=== PATIENT | female | born 1965 | race Caucasian/White ===

== ENCOUNTER 2022-10-04 14:49 | Inpatient (IN) | payer MEDICAID ==
[~2022-10-04] VITALS: Ht 154.9 cm; Wt 64.0 kg
[2022-10-04] MEDS ORDERED: KETOROLAC 30MG/ML VIAL IM STA (16:09)
[2022-10-04] MEDS ORDERED: ONDANSETRON 4MG ODT PO ONE (16:15)
[2022-10-04 17:36] LABS: BASOPHILS % 0.5 % (0.0-2.0); EOSINOPHILS % 0.6 % (0.0-5.0); HEMATOCRIT. 37.6 % (36.0-48.0); HEMOGLOBIN. 12.7 g/dL (12.0-16.0); LYMPHOCYTES % 26.4 % (20.0-50.0); MEAN CORPUSCULAR HEMOGLOBIN 28.8 pg (28.0-32.0); MEAN CORPUSCULAR VOLUME 85.2 fL (81.0-99.0); MEAN PLATELET VOLUME 7.9 fl (7.4-10.4); MONOCYTES % 5.6 % (2.0-8.0); NEUTROPHILS % 66.9 % (40.0-76.0); PLATELET 416 x1000/uL (130-400); RED BLOOD CELL COUNT 4.42 mill/uL (4.2-5.4); RED CELL DISTRIBUTION WIDTH 13.7 % (11.6-14.6)
[2022-10-04 17:43] LABS: CHLORIDE 94 mEq/L (98-107)
[2022-10-04 17:59] LABS: CLARITY URINE TURBID (CLEAR); COLOR URINE YELLOW (YELLOW); KETONES URINE TRACE (NEGATIVE); LEUKOCYTE ESTERASE URINE NEGATIVE (NEGATIVE); NITRITE URINE POSITIVE (NEGATIVE); OCCULT BLOOD URINE NEGATIVE (NEGATIVE); PROTEIN URINE 3+ (NEGATIVE); SPECIFIC GRAVITY URINE 1.025 (1.005-1.030); UROBILINOGEN URINE 0.2 E.U./dL (0.2-1.0)
[2022-10-04] MEDS ORDERED: POTASSIUM CHLORIDE 20MEQ TABLET SR PO ONE (18:00)
[2022-10-04] MEDS ORDERED: CEFTRIAXONE 1 G PREMIX 50 ML IV ONE (18:00)
[2022-10-04] MEDS ORDERED: CEFTRIAXONE 1 G PREMIX 50 ML IV NR (21:45)
[2022-10-04] MEDS ORDERED: POTASSIUM CHLORIDE 20MEQ TABLET SR PO NR (22:00)
[2022-10-04] MEDS ORDERED: NALOXONE HCL 0.4MG/ML VIAL IV PRN (23:45)
[2022-10-05] MEDS ORDERED: TRAMADOL 50MG TABLET PO PRN
[2022-10-05] MEDS ORDERED: PIPERACILLIN/TAZ 3.375G PREMIX 50 ML IV NR (00:30)
[2022-10-05] MEDS ORDERED: DEXT 5%/0.45% NACL KCL 10MEQ/L 1,000 ML IV SCH (01:00)
[2022-10-05] MEDS: ONDANSETRON HCL 4MG/2ML INJ IV PRN ×3 (01:31→21:59)
[2022-10-05] MEDS: HYDROMORPHONE HCL/PF 2MG/ML CPJ IV PRN ×2 (01:32→22:02)
[2022-10-05] MEDS ORDERED: PIPERACILLIN/TAZOBACTAM 3.375 G in DEXTROSE 5% WATER 50 ML IV SCH (08:00)
[2022-10-05 11:00] VITALS: BP 167/96
[2022-10-05 12:00] VITALS: BP 158/84
[2022-10-05] MEDS: PIPERACILLIN/TAZOBACTAM 3.375 G in DEXTROSE 5% WATER 50 ML IV SCH ×2 (15:16→21:59)
[2022-10-05] MEDS: ENOXAPARIN 40MG/0.4ML SYR SUBCUT SCH (15:16)
[2022-10-05] MEDS: AMLODIPINE 10MG TABLET PO SCH (15:16)
[2022-10-05 16:33] VITALS: BP 160/93
[2022-10-05 17:10] LABS: BASOPHILS % 0.3 % (0.0-2.0); EOSINOPHILS % 0.7 % (0.0-5.0); HEMATOCRIT. 36.7 % (36.0-48.0); HEMOGLOBIN. 12.3 g/dL (12.0-16.0); LYMPHOCYTES % 11.8 % (20.0-50.0); MEAN CORPUSCULAR VOLUME 86.1 fL (81.0-99.0); MEAN PLATELET VOLUME 8.2 fl (7.4-10.4); MONOCYTES % 5.6 % (2.0-8.0); NEUTROPHILS % 81.6 % (40.0-76.0); PLATELET 382 x1000/uL (130-400); RED BLOOD CELL COUNT 4.26 mill/uL (4.2-5.4); RED CELL DISTRIBUTION WIDTH 13.7 % (11.6-14.6)
[2022-10-05 17:41] LABS: CHLORIDE 94 mEq/L (98-107)
[2022-10-05 17:50] LABS: HDL CHOLESTEROL 40 mg/dL (40-59); LDL CHOLESTEROL 216 mg/dL (5-100)
[2022-10-05 18:34] VITALS: BP 179/113
[2022-10-05 20:00] VITALS: BP 142/94
[2022-10-05] MEDS: DEXT 5%/0.45% NACL KCL 10MEQ/L 1,000 ML IV SCH (21:59)
[2022-10-06] VITALS (7 sets, daily range): BP systolic 110–164; BP diastolic 59–102
[2022-10-06] MEDS: DEXT 5%/0.45% NACL KCL 10MEQ/L 1,000 ML IV SCH ×2 (02:50→18:24)
[2022-10-06] MEDS: PIPERACILLIN/TAZOBACTAM 3.375 G in DEXTROSE 5% WATER 50 ML IV SCH ×3 (07:00→21:30)
[2022-10-06] MEDS: ENOXAPARIN 40MG/0.4ML SYR SUBCUT SCH (08:59)
[2022-10-06] MEDS: AMLODIPINE 10MG TABLET PO SCH (08:59)
[2022-10-06] MEDS: ONDANSETRON HCL 4MG/2ML INJ IV PRN ×3 (08:59→21:30)
[2022-10-06] MEDS: HYDROMORPHONE HCL/PF 2MG/ML CPJ IV PRN ×2 (08:59→12:16)
[2022-10-06] MEDS ORDERED: PNEUMOCOCCAL 23-VAL P-SAC VAC 0.5 ML IM ONE (09:00)
[2022-10-06] MEDS ORDERED: INFLUENZA VACCINE 05/PF 0.5 ML SYRINGE IM ONE (09:00)
[2022-10-06] MEDS ORDERED: DEXTROSE 50% WATER 50ML SYRINGE IV PRN (13:00)
[2022-10-06] MEDS: BLOOD SUGAR DIAGNOSTIC STRIP TEST SCH ×2 (16:50→21:41)
[2022-10-06] MEDS: INSULIN LISPRO 100 UNITS/ML SUBCUT SCH ×2 (18:24→21:41)
[2022-10-07 00:04] VITALS: BP 171/88
[2022-10-07 04:00] VITALS: BP 152/88
[2022-10-07] MEDS: DEXT 5%/0.45% NACL KCL 10MEQ/L 1,000 ML IV SCH ×3 (05:30→17:35)
[2022-10-07] MEDS: PIPERACILLIN/TAZOBACTAM 3.375 G in DEXTROSE 5% WATER 50 ML IV SCH ×3 (06:58→22:08)
[2022-10-07] MEDS: BLOOD SUGAR DIAGNOSTIC STRIP TEST SCH ×4 (07:00→22:03)
[2022-10-07 07:07] LABS: BASOPHILS % 0.8 % (0.0-2.0); HEMATOCRIT. 31.9 % (36.0-48.0); HEMOGLOBIN. 11.1 g/dL (12.0-16.0); LYMPHOCYTES % 18.2 % (20.0-50.0); MEAN CORPUSCULAR HEMOGLOBIN 30.3 pg (28.0-32.0); MEAN CORPUSCULAR VOLUME 87.2 fL (81.0-99.0); MEAN PLATELET VOLUME 7.7 fl (7.4-10.4); MONOCYTES % 5.7 % (2.0-8.0); NEUTROPHILS % 74.3 % (40.0-76.0); PLATELET 363 x1000/uL (130-400); RED BLOOD CELL COUNT 3.66 mill/uL (4.2-5.4); RED CELL DISTRIBUTION WIDTH 13.7 % (11.6-14.6)
[2022-10-07] MEDS: INSULIN LISPRO 100 UNITS/ML SUBCUT SCH ×4 (07:20→22:08)
[2022-10-07 07:44] LABS: CHLORIDE 102 mEq/L (98-107)
[2022-10-07 08:00] VITALS: BP 152/80
[2022-10-07] MEDS: ENOXAPARIN 40MG/0.4ML SYR SUBCUT SCH (09:11)
[2022-10-07] MEDS: AMLODIPINE 10MG TABLET PO SCH (09:11)
[2022-10-07] MEDS: ONDANSETRON HCL 4MG/2ML INJ IV PRN ×2 (09:17→17:42)
[2022-10-07 12:00] VITALS: BP 105/58
[2022-10-07] MEDS ORDERED: POTASSIUM CHLORIDE INJ 40 MEQ in DEXT 5% WATER 250 ML IV ONE (14:45)
[2022-10-07 16:00] VITALS: BP 140/74
[2022-10-07] MEDS: KCL 20MEQ/100ML X 2 FOR TOTAL KCL 40MEQ/200ML IV SCH ×2 (17:30→19:38)
[2022-10-07] MEDS: ACETAMINOPHEN 325MG TABLET PO PRN (17:49)
[2022-10-07 20:00] VITALS: BP 138/76
[2022-10-08] VITALS: BP 142/90
[2022-10-08 04:00] VITALS: BP 155/88
[2022-10-08] MEDS: BLOOD SUGAR DIAGNOSTIC STRIP TEST SCH ×4 (06:50→22:35)
[2022-10-08 08:00] VITALS: BP 98/49
[2022-10-08] MEDS: PIPERACILLIN/TAZOBACTAM 3.375 G in DEXTROSE 5% WATER 50 ML IV SCH ×3 (08:05→22:30)
[2022-10-08] MEDS: ENOXAPARIN 30MG/0.3ML SYR SUBCUT SCH (08:05)
[2022-10-08] MEDS: AMLODIPINE 10MG TABLET PO SCH (08:05)
[2022-10-08] MEDS: INSULIN LISPRO 100 UNITS/ML SUBCUT SCH ×4 (08:06→22:35)
[2022-10-08] MEDS: DEXT 5%/0.45% NACL KCL 10MEQ/L 1,000 ML IV SCH ×2 (08:07→21:30)
[2022-10-08 12:00] VITALS: BP 130/100
[2022-10-08] MEDS: ONDANSETRON HCL 4MG/2ML INJ IV PRN ×2 (13:59→22:34)
[2022-10-08] MEDS: HYDROMORPHONE HCL/PF 2MG/ML CPJ IV PRN ×2 (13:59→22:34)
[2022-10-08 16:00] VITALS: BP 128/77
[2022-10-08 20:00] VITALS: BP 159/98
[2022-10-09] VITALS: BP 142/88
[2022-10-09 04:00] VITALS: BP 132/84
[2022-10-09] MEDS: BLOOD SUGAR DIAGNOSTIC STRIP TEST SCH ×4 (07:02→20:16)
[2022-10-09] MEDS: PIPERACILLIN/TAZOBACTAM 3.375 G in DEXTROSE 5% WATER 50 ML IV SCH ×3 (07:03→21:10)
[2022-10-09] MEDS: ONDANSETRON HCL 4MG/2ML INJ IV PRN ×3 (07:03→20:16)
[2022-10-09] MEDS: INSULIN LISPRO 100 UNITS/ML SUBCUT SCH ×4 (07:20→21:00)
[2022-10-09 08:00] VITALS: BP 102/59
[2022-10-09] MEDS: ENOXAPARIN 30MG/0.3ML SYR SUBCUT SCH (09:57)
[2022-10-09] MEDS: AMLODIPINE 10MG TABLET PO SCH (09:58)
[2022-10-09 12:00] VITALS: BP 103/63
[2022-10-09] MEDS: HYDROMORPHONE HCL/PF 2MG/ML CPJ IV PRN ×2 (12:09→20:15)
[2022-10-09] MEDS: DEXT 5%/0.45% NACL KCL 10MEQ/L 1,000 ML IV SCH (12:11)
[2022-10-09 16:00] VITALS: BP 138/75
[2022-10-09 20:00] VITALS: BP 145/68
[2022-10-10] VITALS: BP 163/81
[2022-10-10] MEDS: HYDROMORPHONE HCL/PF 2MG/ML CPJ IV PRN ×5 (00:34→20:29)
[2022-10-10] MEDS: DEXT 5%/0.45% NACL KCL 10MEQ/L 1,000 ML IV SCH ×3 (00:36→20:27)
[2022-10-10] MEDS: ONDANSETRON HCL 4MG/2ML INJ IV PRN ×4 (02:39→21:36)
[2022-10-10 04:06] VITALS: BP 177/106
[2022-10-10] MEDS: PIPERACILLIN/TAZOBACTAM 3.375 G in DEXTROSE 5% WATER 50 ML IV SCH ×2 (05:10→15:40)
[2022-10-10] MEDS: BLOOD SUGAR DIAGNOSTIC STRIP TEST SCH ×4 (06:34→20:29)
[2022-10-10 06:39] LABS: BASOPHILS % 0.4 % (0.0-2.0); EOSINOPHILS % 1.3 % (0.0-5.0); HEMATOCRIT. 32.6 % (36.0-48.0); HEMOGLOBIN. 11.1 g/dL (12.0-16.0); LYMPHOCYTES % 7.1 % (20.0-50.0); MEAN CORPUSCULAR HEMOGLOBIN 29.5 pg (28.0-32.0); MEAN CORPUSCULAR VOLUME 86.3 fL (81.0-99.0); MEAN PLATELET VOLUME 7.9 fl (7.4-10.4); MONOCYTES % 9.9 % (2.0-8.0); NEUTROPHILS % 81.3 % (40.0-76.0); PLATELET 385 x1000/uL (130-400); RED BLOOD CELL COUNT 3.77 mill/uL (4.2-5.4); RED CELL DISTRIBUTION WIDTH 13.7 % (11.6-14.6)
[2022-10-10 07:35] LABS: CHLORIDE 104 mEq/L (98-107)
[2022-10-10 08:00] VITALS: BP 146/101
[2022-10-10] MEDS: ENOXAPARIN 30MG/0.3ML SYR SUBCUT SCH (09:00)
[2022-10-10] MEDS: AMLODIPINE 10MG TABLET PO SCH (10:05)
[2022-10-10] MEDS: INSULIN LISPRO 100 UNITS/ML SUBCUT SCH ×4 (10:35→21:00)
[2022-10-10 11:58] LABS: CREATINE KINASE 60 IU/L (26-192)
[2022-10-10 16:00] VITALS: BP 164/79
[2022-10-10 20:00] VITALS: BP 159/86
[2022-10-11] VITALS: BP 150/88
[2022-10-11] MEDS: HYDROMORPHONE HCL/PF 2MG/ML CPJ IV PRN ×4 (01:01→23:35)
[2022-10-11] MEDS: ONDANSETRON HCL 4MG/2ML INJ IV PRN ×3 (03:38→18:19)
[2022-10-11 04:09] VITALS: BP 177/81
[2022-10-11] MEDS: DEXT 5%/0.45% NACL KCL 10MEQ/L 1,000 ML IV SCH (04:46)
[2022-10-11] MEDS: BLOOD SUGAR DIAGNOSTIC STRIP TEST SCH ×4 (06:34→21:00)
[2022-10-11 07:01] LABS: HEMATOCRIT. 31.7 % (36.0-48.0); HEMOGLOBIN. 10.8 g/dL (12.0-16.0); MEAN CORPUSCULAR HEMOGLOBIN 29.4 pg (28.0-32.0); MEAN CORPUSCULAR VOLUME 86.1 fL (81.0-99.0); MEAN PLATELET VOLUME 7.6 fl (7.4-10.4); PLATELET 402 x1000/uL (130-400); RED BLOOD CELL COUNT 3.68 mill/uL (4.2-5.4)
[2022-10-11] MEDS: INSULIN LISPRO 100 UNITS/ML SUBCUT SCH ×4 (07:20→21:12)
[2022-10-11 08:00] VITALS: BP 169/97
[2022-10-11] MEDS ORDERED: SKIN ADHESIVE 0.7 GM EA TOP ONE ×2 (08:06→08:07)
[2022-10-11] MEDS ORDERED: BUPIVACAINE HCL/PF 0.5% (5MG/ML) 10ML ONE (08:07)
[2022-10-11 08:08] LABS: CHLORIDE 105 mEq/L (98-107)
[2022-10-11] MEDS ORDERED: POTASSIUM CHLORIDE INJ 40 MEQ in DEXT 5% WATER 250 ML IV ONE (08:15)
[2022-10-11 08:21] LABS: PHOSPHORUS 3.5 mg/dL (2.5-4.9)
[2022-10-11] MEDS: KCL 20MEQ/100ML X 2 FOR TOTAL KCL 40MEQ/200ML IV SCH ×4 (09:00→21:10)
[2022-10-11] MEDS: AMLODIPINE 10MG TABLET PO SCH ×2 (09:00→18:19)
[2022-10-11] MEDS ORDERED: GLYCOPYRROLATE 0.2 MG/ML 2ML VIAL ONE ×2 (11:50→11:51)
[2022-10-11] MEDS ORDERED: ONDANSETRON HCL 4MG/2ML INJ ONE (11:50)
[2022-10-11] MEDS ORDERED: ETOMIDATE 2MG/ML 10ML VIAL IV ONE (11:50)
[2022-10-11] MEDS ORDERED: SUCCINYLCHOLINE CHLORIDE 200MG/10ML IV ONE (11:50)
[2022-10-11] MEDS ORDERED: ROCURONIUM BROMIDE 10MG/ML VIAL 5ML IV ONE (11:50)
[2022-10-11] MEDS ORDERED: NEOSTIGMINE METHYLSULFATE 1MG/ML 10 ML VIAL ONE (11:50)
[2022-10-11] MEDS ORDERED: FENTANYL CITRATE/PF 50MCG/ML 2ML VIAL ONE (11:51)
[2022-10-11] MEDS ORDERED: MIDAZOLAM HCL 2 MG/2 ML VIAL ONE (11:51)
[2022-10-11] MEDS ORDERED: ONDANSETRON HCL 4MG/2ML INJ IV PRN ×2 (12:30→13:15)
[2022-10-11] MEDS ORDERED: MEPERIDINE HCL/PF 25MG/ML CPJ IV PRN (12:30)
[2022-10-11] MEDS ORDERED: HYDROMORPHONE HCL/PF 2MG/ML CPJ IV PRN (12:30)
[2022-10-11] MEDS ORDERED: LABETALOL 5MG/ML SYR 20 MG/4 ML SYRINGE IV PRN (12:30)
[2022-10-11] MEDS ORDERED: HYDROCODONE/ACETAMINOPHEN 5/325MG TABLET PO PRN (13:15)
[2022-10-11 13:24] LABS: PLATELET ESTIMATE SLIGHTLY INCREASED
[2022-10-11] MEDS: SODIUM CHLORIDE 0.9% INJ 3ML FLUSH IVF SCH ×2 (14:00→21:12)
[2022-10-11 16:00] VITALS: BP 168/92
[2022-10-11] MEDS ORDERED: NALOXONE HCL 0.4MG/ML VIAL IV PRN (16:30)
[2022-10-11] MEDS: DEXT 5%/0.45% NACL KCL 20MEQ/L 1,000 ML IV SCH (18:20)
[2022-10-11] MEDS: HYDROCODONE/ACETAMINOPHEN 5/325MG TABLET PO PRN (18:20)
[2022-10-11] MEDS ORDERED: KCL 20MEQ/100ML PREMIX 100 ML IV SCH (18:30)
[2022-10-11 20:19] VITALS: BP 159/68
[2022-10-11] MEDS: PIPERACILLIN/TAZOBACTAM 3.375 G in DEXTROSE 5% WATER 50 ML IV SCH (21:10)
[2022-10-12 00:01] VITALS: BP 165/84
[2022-10-12] MEDS: ONDANSETRON HCL 4MG/2ML INJ IV PRN ×3 (00:54→17:59)
[2022-10-12 04:00] VITALS: BP 144/79
[2022-10-12] MEDS: BLOOD SUGAR DIAGNOSTIC STRIP TEST SCH ×4 (06:06→21:33)
[2022-10-12] MEDS: SODIUM CHLORIDE 0.9% INJ 3ML FLUSH IVF SCH ×3 (06:06→22:29)
[2022-10-12 06:49] LABS: BASOPHILS % 0.2 % (0.0-2.0); HEMATOCRIT. 32.7 % (36.0-48.0); HEMOGLOBIN. 11.1 g/dL (12.0-16.0); LYMPHOCYTES % 10.1 % (20.0-50.0); MEAN CORPUSCULAR HEMOGLOBIN 29.4 pg (28.0-32.0); MEAN CORPUSCULAR VOLUME 86.1 fL (81.0-99.0); MEAN PLATELET VOLUME 7.5 fl (7.4-10.4); NEUTROPHILS % 80.7 % (40.0-76.0); PLATELET 427 x1000/uL (130-400); RED BLOOD CELL COUNT 3.79 mill/uL (4.2-5.4); RED CELL DISTRIBUTION WIDTH 14.1 % (11.6-14.6)
[2022-10-12 08:00] VITALS: BP 177/85
[2022-10-12 08:40] LABS: PHOSPHORUS 3.1 mg/dL (2.5-4.9)
[2022-10-12] MEDS: PIPERACILLIN/TAZOBACTAM 3.375 G in DEXTROSE 5% WATER 50 ML IV SCH ×2 (08:45→21:03)
[2022-10-12] MEDS: AMLODIPINE 10MG TABLET PO SCH (08:46)
[2022-10-12] MEDS: INSULIN LISPRO 100 UNITS/ML SUBCUT SCH ×4 (08:50→21:48)
[2022-10-12] MEDS: MORPHINE SULFATE 2 MG/ML CPJ (NOT FOR IM USE) IV PRN ×2 (08:51→17:59)
[2022-10-12] MEDS: DEXT 5%/0.45% NACL KCL 20MEQ/L 1,000 ML IV SCH ×3 (08:52→20:00)
[2022-10-12 12:00] VITALS: BP 138/76
[2022-10-12 16:00] VITALS: BP 141/99
[2022-10-12 20:00] VITALS: BP 160/98
[2022-10-12] MEDS: HYDROMORPHONE HCL/PF 2MG/ML CPJ IV PRN (21:52)
[2022-10-13] VITALS: BP 155/100
[2022-10-13] MEDS: ONDANSETRON HCL 4MG/2ML INJ IV PRN ×3 (02:53→19:48)
[2022-10-13] MEDS: HYDROMORPHONE HCL/PF 2MG/ML CPJ IV PRN ×2 (03:13→12:32)
[2022-10-13 04:00] VITALS: BP 163/79
[2022-10-13] MEDS: SODIUM CHLORIDE 0.9% INJ 3ML FLUSH IVF SCH ×3 (06:17→22:00)
[2022-10-13] MEDS: BLOOD SUGAR DIAGNOSTIC STRIP TEST SCH ×4 (06:18→20:43)
[2022-10-13] MEDS: DEXT 5%/0.45% NACL KCL 20MEQ/L 1,000 ML IV SCH ×2 (06:22→17:07)
[2022-10-13] MEDS: INSULIN LISPRO 100 UNITS/ML SUBCUT SCH ×4 (07:20→20:48)
[2022-10-13] MEDS: MORPHINE SULFATE 2 MG/ML CPJ (NOT FOR IM USE) IV PRN (07:32)
[2022-10-13 08:06] VITALS: BP 143/97
[2022-10-13] MEDS: AMLODIPINE 10MG TABLET PO SCH (08:58)
[2022-10-13] MEDS: PIPERACILLIN/TAZOBACTAM 3.375 G in DEXTROSE 5% WATER 50 ML IV SCH ×2 (08:59→20:05)
[2022-10-13 11:42] VITALS: BP 175/93
[2022-10-13 15:28] LABS: BASOPHILS % 0.1 % (0.0-2.0); HEMATOCRIT. 32.9 % (36.0-48.0); MEAN CORPUSCULAR HEMOGLOBIN 28.9 pg (28.0-32.0); MEAN CORPUSCULAR VOLUME 86.2 fL (81.0-99.0); MEAN PLATELET VOLUME 7.4 fl (7.4-10.4); MONOCYTES % 6.2 % (2.0-8.0); NEUTROPHILS % 85.7 % (40.0-76.0); PLATELET 387 x1000/uL (130-400); RED BLOOD CELL COUNT 3.81 mill/uL (4.2-5.4); RED CELL DISTRIBUTION WIDTH 14.2 % (11.6-14.6)
[2022-10-13 16:00] VITALS: BP 164/72
[2022-10-13] MEDS: MORPHINE SULFATE 4 MG/ML CPJ (NOT FOR IM USE) IV PRN (17:08)
[2022-10-14] VITALS (7 sets, daily range): BP systolic 139–180; BP diastolic 68–114
[2022-10-14] MEDS: ONDANSETRON HCL 4MG/2ML INJ IV PRN ×4 (02:03→21:28)
[2022-10-14] MEDS: DEXT 5%/0.45% NACL KCL 20MEQ/L 1,000 ML IV SCH (05:50)
[2022-10-14] MEDS: SODIUM CHLORIDE 0.9% INJ 3ML FLUSH IVF SCH ×3 (06:00→21:42)
[2022-10-14 06:23] LABS: BASOPHILS % 0.1 % (0.0-2.0); HEMATOCRIT. 33.4 % (36.0-48.0); HEMOGLOBIN. 11.3 g/dL (12.0-16.0); LYMPHOCYTES % 9.5 % (20.0-50.0); MEAN CORPUSCULAR HEMOGLOBIN 29.2 pg (28.0-32.0); MEAN CORPUSCULAR VOLUME 86.4 fL (81.0-99.0); MEAN PLATELET VOLUME 7.3 fl (7.4-10.4); MONOCYTES % 7.2 % (2.0-8.0); NEUTROPHILS % 83.2 % (40.0-76.0); PLATELET 406 x1000/uL (130-400); RED BLOOD CELL COUNT 3.86 mill/uL (4.2-5.4)
[2022-10-14] MEDS: MORPHINE SULFATE 2 MG/ML CPJ (NOT FOR IM USE) IV PRN ×2 (06:53→21:04)
[2022-10-14] MEDS: BLOOD SUGAR DIAGNOSTIC STRIP TEST SCH ×4 (07:01→21:02)
[2022-10-14] MEDS: INSULIN LISPRO 100 UNITS/ML SUBCUT SCH ×4 (07:20→21:14)
[2022-10-14] MEDS: PIPERACILLIN/TAZOBACTAM 3.375 G in DEXTROSE 5% WATER 50 ML IV SCH ×2 (09:48→21:02)
[2022-10-14] MEDS: AMLODIPINE 10MG TABLET PO SCH (09:54)
[2022-10-14] MEDS: MORPHINE SULFATE 4 MG/ML CPJ (NOT FOR IM USE) IV PRN (11:44)
[2022-10-14] MEDS ORDERED: DIATR MEGLU/DIATRIZOATE SOLN 120ML ONE (13:35)
[2022-10-15] VITALS (8 sets, daily range): BP systolic 137–204; BP diastolic 78–110
[2022-10-15] MEDS: ONDANSETRON HCL 4MG/2ML INJ IV PRN ×3 (04:58→16:50)
[2022-10-15 06:13] LABS: BASOPHILS % 0.1 % (0.0-2.0); EOSINOPHILS % 0.1 % (0.0-5.0); HEMOGLOBIN. 11.5 g/dL (12.0-16.0); LYMPHOCYTES % 11.3 % (20.0-50.0); MEAN CORPUSCULAR HEMOGLOBIN 29.1 pg (28.0-32.0); MEAN PLATELET VOLUME 7.4 fl (7.4-10.4); MONOCYTES % 7.5 % (2.0-8.0); PLATELET 322 x1000/uL (130-400); RED BLOOD CELL COUNT 3.95 mill/uL (4.2-5.4); RED CELL DISTRIBUTION WIDTH 14.1 % (11.6-14.6)
[2022-10-15] MEDS: SODIUM CHLORIDE 0.9% INJ 3ML FLUSH IVF SCH ×3 (06:15→22:10)
[2022-10-15] MEDS: BLOOD SUGAR DIAGNOSTIC STRIP TEST SCH ×4 (07:04→22:09)
[2022-10-15 07:32] LABS: PHOSPHORUS 2.9 mg/dL (2.5-4.9)
[2022-10-15] MEDS ORDERED: POTASSIUM CHLORIDE INJ 40 MEQ in DEXT 5% WATER 250 ML IV STA ×2 (09:30→15:56)
[2022-10-15] MEDS: AMLODIPINE 10MG TABLET PO SCH (10:33)
[2022-10-15] MEDS: KCL 20MEQ/100ML X 2 FOR TOTAL KCL 40MEQ/200ML IV SCH ×4 (10:33→22:11)
[2022-10-15] MEDS: PIPERACILLIN/TAZOBACTAM 3.375 G in DEXTROSE 5% WATER 50 ML IV SCH ×2 (10:34→22:09)
[2022-10-15] MEDS: INSULIN LISPRO 100 UNITS/ML SUBCUT SCH ×4 (10:35→22:09)
[2022-10-15] MEDS: MORPHINE SULFATE 2 MG/ML CPJ (NOT FOR IM USE) IV PRN (14:31)
[2022-10-15] MEDS ORDERED: MAGNESIUM 1 G PREMIX 100 ML IV NR (15:30)
[2022-10-15] MEDS: HYDROCODONE/ACETAMINOPHEN 5/325MG TABLET PO PRN (16:47)
[2022-10-16] VITALS: BP 159/99
[2022-10-16 04:00] VITALS: BP 156/89
[2022-10-16] MEDS: BLOOD SUGAR DIAGNOSTIC STRIP TEST SCH ×5 (06:50→21:24)
[2022-10-16 08:00] VITALS: BP 157/88
[2022-10-16] MEDS ORDERED: POTASSIUM CHLORIDE 20MEQ TABLET SR PO NR (08:45)
[2022-10-16] MEDS: AMLODIPINE 10MG TABLET PO SCH (10:52)
[2022-10-16] MEDS: SODIUM CHLORIDE 0.9% INJ 3ML FLUSH IVF SCH ×3 (10:52→21:23)
[2022-10-16] MEDS: INSULIN LISPRO 100 UNITS/ML SUBCUT SCH ×4 (10:55→21:24)
[2022-10-16] MEDS: ONDANSETRON HCL 4MG/2ML INJ IV PRN (11:12)
[2022-10-16] MEDS: PIPERACILLIN/TAZOBACTAM 3.375 G in DEXTROSE 5% WATER 50 ML IV SCH (11:13)
[2022-10-16 12:00] VITALS: BP 157/83
[2022-10-16 12:57] LABS: BASOPHILS % 0.3 % (0.0-2.0); EOSINOPHILS % 0.9 % (0.0-5.0); HEMATOCRIT. 30.5 % (36.0-48.0); HEMOGLOBIN. 10.3 g/dL (12.0-16.0); LYMPHOCYTES % 14.4 % (20.0-50.0); MEAN CORPUSCULAR VOLUME 85.7 fL (81.0-99.0); MEAN PLATELET VOLUME 7.5 fl (7.4-10.4); MONOCYTES % 5.7 % (2.0-8.0); NEUTROPHILS % 78.7 % (40.0-76.0); PLATELET 284 x1000/uL (130-400); RED BLOOD CELL COUNT 3.55 mill/uL (4.2-5.4); RED CELL DISTRIBUTION WIDTH 13.8 % (11.6-14.6)
[2022-10-16] MEDS: HYDRALAZINE 20MG/ML VIAL IV PRN ×2 (13:01→13:10)
[2022-10-16 13:08] LABS: PHOSPHORUS 2.6 mg/dL (2.5-4.9)
[2022-10-16] MEDS: METOCLOPRAMIDE HCL 10MG/2ML VIAL IV SCH ×3 (13:22→23:44)
[2022-10-16 16:00] VITALS: BP 135/82
[2022-10-16 20:00] VITALS: BP 125/90
[2022-10-16] MEDS ORDERED: NALOXONE HCL 0.4MG/ML VIAL IV PRN (20:30)
[2022-10-16] MEDS: HYDROMORPHONE HCL/PF 2MG/ML CPJ IV PRN (20:47)
[2022-10-17] VITALS (8 sets, daily range): BP systolic 114–153; BP diastolic 64–87
[2022-10-17] MEDS ORDERED: HYDRALAZINE 10 MG in SODIUM CHLORIDE 0.9% 49.5 ML IV PRN (05:45)
[2022-10-17] MEDS: METOCLOPRAMIDE HCL 10MG/2ML VIAL IV SCH ×3 (06:33→18:00)
[2022-10-17] MEDS: BLOOD SUGAR DIAGNOSTIC STRIP TEST SCH ×2 (07:20→12:20)
[2022-10-17 08:17] LABS: BASOPHILS % 0.4 % (0.0-2.0); EOSINOPHILS % 1.8 % (0.0-5.0); HEMATOCRIT. 31.6 % (36.0-48.0); HEMOGLOBIN. 10.8 g/dL (12.0-16.0); LYMPHOCYTES % 15.9 % (20.0-50.0); MEAN CORPUSCULAR HEMOGLOBIN 29.2 pg (28.0-32.0); MEAN CORPUSCULAR VOLUME 85.2 fL (81.0-99.0); MEAN PLATELET VOLUME 7.4 fl (7.4-10.4); MONOCYTES % 5.1 % (2.0-8.0); NEUTROPHILS % 76.8 % (40.0-76.0); PLATELET 329 x1000/uL (130-400); RED BLOOD CELL COUNT 3.71 mill/uL (4.2-5.4); RED CELL DISTRIBUTION WIDTH 13.6 % (11.6-14.6)
[2022-10-17] MEDS: ACETAMINOPHEN 325MG TABLET PO PRN (09:42)
[2022-10-17] MEDS: AMLODIPINE 10MG TABLET PO SCH (09:42)
[2022-10-17] MEDS: INSULIN LISPRO 100 UNITS/ML SUBCUT SCH ×3 (13:00→22:03)
[2022-10-17] MEDS ORDERED: POTASSIUM CHLORIDE INJ 40 MEQ in DEXT 5% WATER 250 ML IV ONE (13:30)
[2022-10-17] MEDS: KCL 20MEQ/100ML X 2 FOR TOTAL KCL 40MEQ/200ML IV SCH ×2 (17:19→17:22)
[2022-10-18] VITALS: BP_SYST 164; BP_SYST 184; BP_DIAS 88; BP_DIAS 91
[2022-10-18] MEDS: ONDANSETRON HCL 4MG/2ML INJ IV PRN
[2022-10-18] MEDS: HYDROMORPHONE HCL/PF 2MG/ML CPJ IV PRN ×2 (00:10→13:48)
[2022-10-18 04:00] VITALS: BP 116/73
[2022-10-18] MEDS: INSULIN LISPRO 100 UNITS/ML SUBCUT SCH ×4 (06:56→21:48)
[2022-10-18 07:14] LABS: BASOPHILS % 0.3 % (0.0-2.0); EOSINOPHILS % 1.7 % (0.0-5.0); HEMATOCRIT. 30.2 % (36.0-48.0); HEMOGLOBIN. 10.5 g/dL (12.0-16.0); MEAN CORPUSCULAR HEMOGLOBIN 29.4 pg (28.0-32.0); MEAN CORPUSCULAR VOLUME 84.6 fL (81.0-99.0); MEAN PLATELET VOLUME 7.7 fl (7.4-10.4); MONOCYTES % 5.1 % (2.0-8.0); NEUTROPHILS % 70.9 % (40.0-76.0); PLATELET 351 x1000/uL (130-400); RED BLOOD CELL COUNT 3.57 mill/uL (4.2-5.4); RED CELL DISTRIBUTION WIDTH 13.9 % (11.6-14.6)
[2022-10-18 08:00] VITALS: BP 149/86
[2022-10-18] MEDS: METOCLOPRAMIDE HCL 10MG/2ML VIAL IV SCH ×2 (10:34→20:04)
[2022-10-18] MEDS: AMLODIPINE 10MG TABLET PO SCH (10:35)
[2022-10-18 12:00] VITALS: BP 137/87
[2022-10-18] MEDS: SODIUM CHL 0.45% + KCL 20MEQ/L 1,000 ML IV SCH (14:05)
[2022-10-18 16:00] VITALS: BP 117/67
[2022-10-18 20:00] VITALS: BP 135/63
[2022-10-19] VITALS: BP 126/71
[2022-10-19] MEDS: SODIUM CHL 0.45% + KCL 20MEQ/L 1,000 ML IV SCH (02:50)
[2022-10-19 04:00] VITALS: BP 110/71
[2022-10-19] MEDS: METOCLOPRAMIDE HCL 10MG/2ML VIAL IV SCH ×3 (06:00→13:20)
[2022-10-19] MEDS: INSULIN LISPRO 100 UNITS/ML SUBCUT SCH ×2 (07:50→13:46)
[2022-10-19 08:00] VITALS: BP 166/85
[2022-10-19] MEDS: ONDANSETRON HCL 4MG/2ML INJ IV PRN ×2 (09:34→17:58)
[2022-10-19] MEDS: AMLODIPINE 10MG TABLET PO SCH (09:34)
[2022-10-19] MEDS: HYDROMORPHONE HCL/PF 2MG/ML CPJ IV PRN (09:53)
[2022-10-19 12:00] VITALS: BP 158/86
[2022-10-19 16:00] VITALS: BP 126/61
[2022-10-19 18:05] VITALS: BP 126/61
== END 2022-10-19 18:37 | disposition home or self-care (01) | DRG 263 ==
LOC: ER 14:49 → EDBEDREQ 20:21 → EDBEDREQTM 20:21 → MICUSO 10-05 06:08 → 5WST 10-05 11:12 → 3WST 10-05 11:24 → 6EST 10-17 00:50
PROVIDERS: ADMIT Hospitalist; ATTEND Hospitalist
PROC: 0FT44ZZ Resection of Gallbladder, Percutaneous Endoscopic Approach (ICD-10-PCS; principal; 2022-10-11)
DX: K80.13 Calculus of gallbladder with acute and chronic cholecystitis with obstruction (principal); N17.9 Acute kidney failure, unspecified; E43 Unspecified severe protein-calorie malnutrition; K56.7 Ileus, unspecified; Z20.822 Contact with and (suspected) exposure to COVID-19; E11.9 Type 2 diabetes mellitus without complications; I10 Essential (primary) hypertension; N39.0 Urinary tract infection, site not specified; R80.9 Proteinuria, unspecified; E87.6 Hypokalemia; E86.9 Volume depletion, unspecified; R11.2 Nausea with vomiting, unspecified
CPT/HCPCS: 36415; 74176; 74181; 74250; 76705; 76770; 78227; 80048; 80053; 80061; 81003; 82550; 82570; 82962; 83036; 83735; 84100; 84156; 85025; 87426; 88304; 93005; 93970; 99285; A6261; A9537; C1893; J0330; J0360; J0696; J1170; J1650; J1815; J1885; J2250; J2270; J2405; J2543; J2710; J2765; J3010; J3475; J3480; J3490; J7030; J7060; Q0162; Q9963; A4315